=== PATIENT | male | born 1990 | race American Indian/Alaskan Native ===

== ENCOUNTER 2016-08-30 08:41 | Emergency (ER) | payer BC, OTHER ==
[2016-08-30 08:50] VITALS: BMI 32.1
[2016-08-30 08:52] VITALS: BP 136/64; PULSE 60; RESP 19; TEMP 97.8; O2SAT 98
--- NOTE | 2016-08-30 09:17 | ED PDOC ---
HPI: General Adult Time Seen by Provider: 08/30/16 09:05 Chief Complaint (Nursing): Upper Extremity Problem/Injury Chief Complaint (Provider): bilateral hand pain History Per: Patient History/Exam Limitations: no limitations Additional Complaint(s): 26yo male comes to the ED with bilateral hand pain and swelling since yesterday. Patient does carpentry work and tiles and states he became frustrated while at a job site yesterday after which he punched a wall with both hands. Past Medical History Reviewed: Historical Data, Nursing Documentation, Vital Signs Vital Signs: Last Vital Signs Temp 97.8 F 08/30/16 08:51 Pulse 60 08/30/16 08:51 Resp 19 08/30/16 08:51 BP 136/64 08/30/16 08:51 Pulse Ox 98 08/30/16 09:19 - Medical History PMH: Hypercholesterolemia - Family History Family History: States: Unknown Family Hx - Social History Drugs: Denies - Home Medications Home Medications: Ambulatory Orders Medication Instructions Recorded Naproxen [Naprosyn] 500 mg PO Q12H #20 tab 08/30/16 - Allergies Allergies/Adverse Reactions: Allergies Allergy/AdvReac Type Severity Reaction Status Date / Time No Known Allergies Allergy Verified 08/30/16 09:05 Review of Systems ROS Statement: Except As Marked, All Systems Reviewed And Found Negative Musculoskeletal: Positive for: Hand Pain Physical Exam - Reviewed Nursing Documentation Reviewed: Yes Vital Signs Reviewed: Yes - Physical Exam Appears: Positive for: Well, Non-toxic, No Acute Distress Head Exam: Positive for: ATRAUMATIC, NORMAL INSPECTION, NORMOCEPHALIC Extremity: Positive for: Normal ROM, Swelling (mild swelling 4th 5th MCP areas bilaterally. ). Negative for: Tenderness - ECG O2 Sat by Pulse Oximetry: 98 (RA) Pulse Ox Interpretation: Normal Medical Decision Making Medical Decision Makin XR Bilateral hands ordered to rule out fractures Disposition - Clinical Impression Clinical Impression: Contusion - Patient ED Disposition Is Patient to be Admitted: No Counseled Patient/Family Regarding: Studies Performed, Diagnosis, Need For Followup, Rx Given - Disposition Referrals: [facility] [Outside] Disposition: Routine/Home Disposition Time: 09:54 Condition: FAIR Prescriptions: Naproxen [Naprosyn] 500 mg PO Q12H #20 tab Instructions: Contusion in Adults (ED) Additional Comments - Additional Comments Additional Comments: Scribe Attestation Documented by Sam Lynch acting as a scribe for Ronal Vanessa MD. Provider Attestation All medical record entries made by the Scribe were at my direction and personally dictated by me. I have reviewed the chart and agree that the record accurately reflects my personal performance of the history, physical exam, medical decision making, and the department course for this patient. I have also personally directed, reviewed, and agree with the discharge instructions and disposition
--- NOTE | 2016-08-30 16:24 | RAD ---
PROCEDURE: Bilateral hand radiographs. HISTORY: trauma COMPARISON: None. FINDINGS: BONES: Right Hand: Normal. Left Hand: Normal. JOINTS: Right Hand: Normal. Left Hand: Normal. SOFT TISSUES: Right Hand: Normal. Left Hand: Normal. OTHER FINDINGS: None. IMPRESSION: No acute fracture or dislocation.
== END 2016-08-30 10:00 | disposition home or self-care (01) ==
LOC: H.ER 08:41
DX: M79.643 Pain in unspecified hand (principal); E78.00 Pure hypercholesterolemia, unspecified

== ENCOUNTER 2018-03-06 21:48 | Emergency (ER) | payer SELFPAY ==
[2018-03-06 21:48] VITALS: BMI 32.1
[2018-03-06 22:03] VITALS: BP 123/69; PULSE 67; RESP 18; TEMP 98.6; O2SAT 99
[2018-03-06] MEDS ORDERED: Amoxicillin 125 MG/5 ml PO STA (22:06)
--- NOTE | 2018-03-06 22:13 | ED PDOC ---
HPI: Dental Pain/Injury Time Seen by Provider: 03/06/18 22:11 Chief Complaint (Nursing): Dental Pain History Per: Patient History/Exam Limitations: no limitations Onset/Duration Of Symptoms: Days Current Symptoms Are (Timing): Still Present Severity: Mild Quality: Aching Additional Complaint(s): Pt. has had several month history of dental pain, right lower and left upper teeth. Pt. had a route canal to affected tooth in past but has not been able to f/u with dentist due to insurance issues. Pt. otherwise feels well, good po intake, no fevers, no facial swelling. Past Medical History Reviewed: Historical Data, Nursing Documentation, Vital Signs Vital Signs: Last Vital Signs Temp 98.6 F 03/06/18 22:01 Pulse 67 03/06/18 22:01 Resp 18 03/06/18 22:01 BP 123/69 03/06/18 22:01 Pulse Ox 99 03/06/18 22:01 - Medical History PMH: No Chronic Diseases, Hypercholesterolemia - Family History Family History: States: Unknown Family Hx - Home Medications Home Medications: Ambulatory Orders Medication Instructions Recorded Naproxen [Naprosyn] 500 mg PO Q12H #20 tab 08/30/16 - Allergies Allergies/Adverse Reactions: Allergies Allergy/AdvReac Type Severity Reaction Status Date / Time No Known Allergies Allergy Verified 03/06/18 22:01 Review of Systems Constitutional: Negative for: Fever, Chills ENT: Negative for: Mouth Swelling Physical Exam - Reviewed Vital Signs Reviewed: Yes - Physical Exam Appears: Positive for: Well Head Exam: Positive for: ATRAUMATIC ENT: Positive for: Other (Dentition: tooth tenderness to percussion to right mandibular premolar and left mandibular premolar area with no gingival erythema, swelling, (-) intraoral abscess.) - ECG O2 Sat by Pulse Oximetry: 99 Medical Decision Making Medical Decision Making: Amox po and motrin po given. pt. well appearing, nontoxic, stressed importance of close dental f/u. he agrees to plan. Disposition - Clinical Impression Clinical Impression: Pain, dental - Patient ED Disposition Is Patient to be Admitted: No - Disposition Disposition: Routine/Home Disposition Time: 22:25 Condition: IMPROVED Instructions: Dental Pain (DC)
== END 2018-03-06 22:46 | disposition home or self-care (01) ==
LOC: H.ER 21:48
DX: K00.9 Disorder of tooth development, unspecified (principal)